=== PATIENT | female | born 1990 | race Hispanic/Latino ===

== ENCOUNTER 2024-06-24 20:28 | Emergency (ER) | payer OTHER, SELFPAY ==
[2024-06-24 20:30] VITALS: BP 143/101
[2024-06-24 21:02] VITALS: BP 139/97
[2024-06-24 21:21] LABS: % Basophils 0.4 % (0-2); % Eosinophils 0.9 % (0-6); % Immature Granulocytes 0.3 % (0-0.5); % Lymphocytes 23.1 % (20.5-51.1); % Monocytes 15.2 % (1.7-9.3); % Neutrophils 60.1 % (42.2-75.2); Absolute Eosinophils 0.1 10^3/uL (0-0.7); Absolute Lymphocytes 1.6 10^3/uL (1.2-3.4); Hematocrit 32.6 % (37.0-47.0); Hemoglobin 11.5 g/dL (12.0-16.0); Mean Corp Hgb Conc. 35.3 g/dL (33.0-37.0); Mean Corpuscular Hgb 28.9 pg (27.0-31.0); Mean Corpuscular Volume 81.9 fL (81.0-99.0); Mean Platelet Volume 9.1 fL (7.4-10.4); Nucleated Red Blood Cells % 0 %; Platelet Count 217 10^3/uL (130-400); Red Blood Cell Count 3.98 10^6/uL (4.20-5.40); Red Cell Dist. Width 12.9 % (11.5-14.5); White Blood Cell Count 6.7 10^3/uL (4.8-10.8)
[2024-06-24 21:33] LABS: COVID-19 Antigen Negative (Negative)
[2024-06-24 21:34] LABS: ALT (SGPT) 27 U/L (0-35); AST (SGOT) 22 U/L (14-36); Albumin 3.9 g/dl (3.5-5.0); Alkaline Phosphatase 71 U/L (38-126); Blood Urea Nitrogen 9 mg/dl (7-17); Calcium 8.5 mg/dl (8.4-10.2); Carbon Dioxide 28 mmol/L (22-30); Chloride 97 mmol/L (98-107); Glucose 106 mg/dl (70-99); Lipase 109 U/L (23-300); Potassium 3.5 mmol/L (3.5-5.1); Sodium 132 mmol/L (135-145); Total Bilirubin 0.4 mg/dl (0.2-1.3); Total Protein 7.4 g/dl (6.3-8.2); eGFR > 60.00
[2024-06-24 21:36] LABS: HCG, Serum Qualitative Screen Negative
--- NOTE | 2024-06-24 21:56 | ED.GENMED ---
History of Present Illness
General
Chief Complaint: Abdominal Pain
Source: patient
Time Seen by Provider: 06/24/24 21:47
History of Present Illness
History of Present Illness:
34-year-old female presents to the emergency room complaining of fever, chills, dizziness as well as right lower quadrant abdominal pain. Symptoms began about 5 days ago. She denies any nausea or vomiting. She denies diarrhea or constipation.
She denies urinary frequency or dysuria. Patient feels achy all over but most particularly in the lower abdomen. It feels worse when she sits up or takes a deep breath. She took Tylenol yesterday which helped mildly. Patient had a
cholecystectomy in the past.
Past History
Past History
ED Past Medical History: None
ED Past Surgical History: Cholecystectomy
Social History
Tobacco: Non-smoker
Alcohol: None
Drug: None
Phy Exam
Physical Exam
Physical Exam:
General: Awake, Alert, Oriented X3. No acute distress.
Vitals: Temperature 100.4 orally, mildly tachycardic in 110's
Head: Atraumatic, facial flushing
Eyes: Pupils equal, EOMI
Throat: Airway intact, no exudates
Neck: Trachea midline
Lungs: Clear and equal b/l
Heart: Regular rate, no murmurs
Abd: Soft, mild tenderness right lower quadrant, no rebound or guarding, No pulsatile mass
Neuro: Nonfocal
Skin: Warm, dry, no rash
Extremities: pulses equal b/l, no edema
Course
Orders/Labs/Results
Orders:
Orders
06/24/24 20:35
Test Result ONCE
06/24/24 21:00
COVID-19 Antigen Urgent
Source: Nasal Swab
Complete Blood Count/With Diff Urgent
Comprehensive Metabolic Panel Urgent
HCG, Serum Qualitative Screen Urgent
Lipase Urgent
Influenza A+B Rapid Molecular Urgent
MINA Source: Nasal Swab
Specimen Description:
06/24/24 21:54
0.9% Sodium Chloride 1000 ml [Nss] 1,000 ml IV BOLUS
Acetaminophen [Tylenol] 1,000 mg PO NOW STA
06/24/24 21:56
CT Abd/pelvis W Iv Cont Urgent
Comment:
Reason For Exam: rlq abd pain
06/24/24 22:08
Urinalysis Reflex To Culture Urgent
Date Specimen was Collected: 06/24/24
Time Specimen was Collected: 21:58
Urine Microscopic Reflex Cult Urgent
Urine Culture Urgent
MINA Source: U
Specimen Description:
Date Specimen was Collected: 06/24/24
Time Specimen was Collected: 21:58
06/24/24 23:19
Sulfamethox./Trimethoprim Ds [Bactrim Ds 800 mg/160 mg] 1 tablet PO NOW STA
Abnormal Lab Results
06/24/24 06/24/24
21:00 22:08
RBC 3.98 L 10^6/uL
(4.20-5.40)
Hgb 11.5 L g/dL
(12.0-16.0)
Hct 32.6 L %
(37.0-47.0)
Absolute Monos (auto) 1.0 H 10^3/uL
(0.1-0.6)
Monocytes % 15.2 H %
(1.7-9.3)
Sodium 132 L mmol/L
(135-145)
Chloride 97 L mmol/L
(98-107)
Creatinine 0.5 L mg/dL
(0.6-1.0)
Glucose 106 H mg/dl
(70-99)
Ur Occult Blood Reflex 4+ A
(Negative)
Leukocyte Esterase Rfl 2+ A
(Negative)
Urine RBC 7-10 A /HPF
(0-2)
Urine WBC (Reflex) 11-15 A /HPF
(0-5)
Urine Bacteria (Reflex) Few A
(Negative)
06/24/24 21:00
06/24/24 21:00
Vital Signs
Initial and Last Documented VS:
Initial Vital Signs
Temp Pulse Resp BP Pulse Ox
100.1 F 108 20 143/101 99
06/24/24 20:30 06/24/24 20:30 06/24/24 20:30 06/24/24 20:30 06/24/24 20:30
Last Documented Vital Signs
Temp Pulse Resp BP Pulse Ox
98.7 F 70 18 106/65 99
06/24/24 23:40 06/24/24 23:40 06/24/24 23:40 06/24/24 23:40 06/24/24 23:40
MDM/Problems Addressed
Differential Diagnosis Includes:
Appendicitis, diverticulitis, UTI, ectopic
MDM/Problems Addressed:
Patient presents with abdominal pain, fevers for the past 4 days. Ultimately the patient was found to have changes on a CAT scan suggestive of pyelonephritis. Her urinalysis is abnormal with positive leukocyte esterase as well as 11-15 WBCs per
high-power field. Patient started on Bactrim. She is tolerating oral intake and is happy to be discharged home. She will return if she is feeling worse.
*Critical Care Note
Total Time (30-74mins, 75-104mins- exclusive of procedures): Not Applicable
ED Attending Note
-
Portions of this chart may have been created with voice recognition software.� Occasional wrong word or��sound alike� substitutions may have occurred due to the inherent limitations of voice recognition software.
Discharge Plan
Departure
Patient Disposition: Home (Routine Discharge)
Date of Disposition: 06/24/24
Time of Disposition: 23:19
Patient with high blood pressure during this ER visit?: Yes
Condition: Good
Discharge Problem:
Pyelonephritis
Instructions: Urinary tract infections in adults, BLOOD PRESSURE
Prescriptions:
New
sulfamethoxazole-trimethoprim [Bactrim DS] 800-160 mg tablet
1 tab PO BID Qty: 20 0RF
No Action
PNV,calcium 39-bmgu-fuyel acid [ Vitamin Plus Low Iron] 1 TABLET tablet
1 tab PO DAILY
ibuprofen 600 MG tablet
600 mg PO Q4HPRN PRN (Reason: moderate pain/cramps) 0RF
ibuprofen 600 mg tablet
600 mg PO Q6H PRN (Reason: pain) Qty: 30 0RF
Rx Instructions:
take with food
Referrals:
Phill Graham, DO [Family Provider] -
Interventions
Interventions:
*Risk Screen - Suicide Last Done: 06/24/24 20:30
*General Assessment Last Done: 06/24/24 20:30
*Neglect/Abuse Screening Last Done: 06/24/24 20:30
ED- Fall Risk Assessment Last Done: 06/24/24 23:42
*ED COVID-19 Vaccine History Last Done: 06/24/24 21:01
*Nursing Disposition Last Done: 06/24/24 23:42
MH-Hfquzi-Flzxetlctr Assessment Last Done: 06/24/24 21:01
Discharge Date and Time
Discharge Date/Time: 06/24/24 23:43
Print Language: DIVEHI
[2024-06-24] MEDS: NSS 1000 IV (22:03)
[2024-06-24] MEDS: TYLENOL 1000 MG PO (22:04)
[2024-06-24 22:19] LABS: Urine Albumin Negative (Neg - Trace); Urine Bilirubin Negative (Negative); Urine Character Clear (Clear); Urine Color Yellow; Urine Glucose Negative (Negative); Urine Ketone Negative (Negative); Urine Leukocyte 2+ (Negative); Urine Nitrite Negative (Negative); Urine Occult Blood 4+ (Negative); Urine Specific Gravity 1.005 (<1.030); Urine Urobilinogen Negative (Neg - 1+); Urine pH 6.5 (5.0-9.0)
[2024-06-24 22:28] LABS: Urine Bacteria Few (Negative)
[2024-06-24] MEDS: BACTRIM DS 800 MG/160 MG 1 TABLET PO (23:36)
[2024-06-24 23:40] VITALS: BP 106/65
== END 2024-06-24 23:43 | disposition home or self-care (01) ==
LOC: EMR 20:28
PROVIDERS: Student in an Organized Health Care Education/Training Program; EMERGENCY PHYSICIAN Emergency Medicine; FAMILY PHYSICIAN Family Medicine
DX: N10 Acute pyelonephritis (principal); R42 Dizziness and giddiness; R10.31 Right lower quadrant pain; Z11.52 Encounter for screening for COVID-19; R03.0 Elevated blood-pressure reading, without diagnosis of hypertension; Z90.49 Acquired absence of other specified parts of digestive tract
CPT/HCPCS: 99284; 96360; 74177; 80053; 81003; 81015; 83690; 84703; 85025; 87086; 87502; 87811; Q9967